=== PATIENT | female | born 1990 | race African-American/Black ===

== ENCOUNTER 2023-04-01 20:01 | Emergency (ER) | payer OTHER ==
[~2023-04-01] VITALS: Ht 157.4 cm; Wt 59.0 kg
[2023-04-01] MEDS ORDERED: SODIUM CHLORIDE 0.9% 1,000 ML IV ONE (20:15)
[2023-04-01 20:26] LABS: HEMATOCRIT 22.6 % (37.0-47.0); MEAN CELL VOLUME 103.7 fl (81.0-99.0); MEAN CORPUSCULAR HGB 35.8 pg (27.0-31.0); MEAN CORPUSCULAR HGB CONC 34.5 g/dl (33.0-37.0); MEAN PLATELET VOLUME 9.1 fl (9.6-12.3); NUCLEATED RED BLOOD CELL 0.7 10*3/uL (0.0-0.0); NUCLEATED RED BLOOD CELL 3.8 % (0.0-0.0); PLATELET COUNT AUTOMATED 504 10*3/uL (130-400); RED BLOOD COUNT 2.18 10*6/uL (4.10-5.10); WHITE BLOOD COUNT 19.1 10*3/uL (4.8-10.8)
[2023-04-01 20:44] LABS: BILIRUBIN Negative (Negative); BLOOD Negative (Negative); CLARITY Clear (Clear); COLOR Yellow (Yellow); GLUCOSE Negative (Negative); KETONE Negative (Negative); LEUKO ESTERASE Trace (Negative); NITRITE Negative (Negative); PH 6.5 (4.5-8.0)
[2023-04-01 20:45] LABS: BUN 10 mg/dl (9-23); CHLORIDE 107 mmol/L (98-107); MANUAL DIFF REFLEX YES; POTASSIUM 3.4 mmol/L (3.4-5.1)
[2023-04-01 20:52] LABS: URINE AMPHETAMINES Negative (1000ng/ml); URINE BARBITURATES Negative (200ng/ml); URINE BENZODIAZEPINES Negative (200ng/ml); URINE CANNABINOIDS (THC) Negative (50ng/ml); URINE COCAINE Negative (300ng/ml); URINE METHADONE Negative (300ng/ml); URINE OPIATES Negative (300ng/ml); URINE PHENCYCLIDINE Negative (25ng/ml)
[2023-04-01 20:53] LABS: BASOPHILS 1 % (0-1); TOTAL CELLS COUNTED 100 #CELLS
[2023-04-01 20:54] LABS: PLATELET SUFFICIENCY HIGH (NORMAL); TARGET CELLS MODERATE
[2023-04-01 20:55] LABS: POLYCHROMASIA SLIGHT
[2023-04-01] MEDS ORDERED: Ketorolac Tromethamine 30 MG/ML VIAL IV ONE (21:00)
[2023-04-01 21:01] LABS: ETHYL ALCOHOL < 3.0 mg/dl (<3)
[2023-04-01 21:04] LABS: BACTERIA 2+
[2023-04-01] MEDS ORDERED: MORPHINE Sulfate 2 MG/ML SYR IV ONE (21:40)
[2023-04-01 21:55] LABS: VENOUS PH 7.389 (7.37-7.45)
[2023-04-01] MEDS ORDERED: CIPRO500 MG PO (23:38)
[2023-04-01] MEDS ORDERED: TRAMADOL HCL50 MG PO (23:38)
== END 2023-04-01 23:49 | disposition home or self-care (01) ==
LOC: ED 20:01
PROVIDERS: Internal Medicine
DX: D57.00 Hb-SS disease with crisis, unspecified (principal); N39.0 Urinary tract infection, site not specified; M79.604 Pain in right leg; M79.605 Pain in left leg; Z88.8 Allergy status to other drugs, medicaments and biological substances